=== PATIENT | female | born 2000 | race Caucasian/White ===

== ENCOUNTER 2020-10-03 07:37 | Day surgery (SDC) | payer OTHER ==
[2020-09-30 09:45] LABS: MICROSCOPIC NOT IND
[2020-09-30 09:46] LABS: BASOPHILS % (AUTO) 1 % (0-1); EOSINOPHILS % (AUTO) 1 % (1-7); LYMPHOCYTES % (AUTO) 34 % (22-44); MEAN CORPUSCULAR HEMOGLOBIN 27.3 pg (27.0-34.8); MEAN CORPUSCULAR HGB CONC 32.9 g/dL (32.4-35.8); MONOCYTES % (AUTO) 7 % (2-9); NEUTROPHILS % (AUTO) 57 % (42-75); PLATELET COUNT 207 x10^3/uL (130-400); RED BLOOD COUNT 4.83 x10^6/uL (3.82-5.3); RED CELL DISTRIBUTION WIDTH 14.2 % (9.6-15.2)
[2020-09-30 09:47] LABS: MD NO
[2020-09-30 09:56] LABS: ALANINE AMINOTRANSFERASE 20 U/L (12-78); ANION GAP 4 mmol/L (5-15); CALCIUM 8.6 mg/dL (8.5-10.1); CHLORIDE 112 mmol/L (98-107); CREATININE 0.73 mg/dL (0.55-1.02)
[2020-09-30 10:01] LABS: ALKALINE PHOSPHATASE 93 U/L (45-117); BILIRUBIN,TOTAL 0.4 mg/dL (0.2-1.0)
[~2020-10-03] VITALS: Ht 172.7 cm; Wt 76.1 kg
[~2020-10-03 07:37] MED LIST: ASCO500T59 PO; CA C1TAB39 PO; CHOL10003 PO; IBUP-1223 PO; MEDR150D3 INJ; MULT-658 PO
[2020-10-03] MEDS ORDERED: MIDAZOLAM 1 MG/ML, 2ML ONE (07:45)
[2020-10-03] MEDS ORDERED: FENTANYL PF 250 MCG/5ML ONE (07:46)
[2020-10-03] MEDS ORDERED: PROPOFOL 10 MG/ML, 20ML ONE (07:47)
[2020-10-03] MEDS ORDERED: LIDOCAINE-MPF 2% ,5ML ONE (07:49)
[2020-10-03] MEDS ORDERED: ROCURONIUM 10MG/ML,5ML ONE (07:49)
[2020-10-03] MEDS ORDERED: CHLORHEXIDINE 15 ML UDC ONE (07:50)
[2020-10-03] MEDS ORDERED: LACTATED RINGERS 1,000 ML IV SCH (08:00)
[2020-10-03] MEDS ORDERED: CHLORHEXIDINE 15 ML UDC PO ONE (08:00)
[2020-10-03 08:03] VITALS: BP 138/87
[2020-10-03] MEDS ORDERED: MEPERIDINE/PF 25MG/0.5ML IVPush PRN (09:00)
[2020-10-03] MEDS ORDERED: hydrALAzine 20 MG/ML, 1ML IV PRN (09:00)
[2020-10-03] MEDS ORDERED: OXYcodone 5 MG/5 ML ORAL.SOL UDC PO PRN (09:00)
[2020-10-03] MEDS ORDERED: PROMETHAZINE 25 MG/ML, 1ML IVPush PRN (09:00)
[2020-10-03] MEDS ORDERED: DIPHENHYDRAMINE 50 MG/ML, 1ML IVPush PRN (09:00)
[2020-10-03] MEDS ORDERED: DIAZEPAM 5 MG/ML, 2ML IVPush PRN (09:00)
[2020-10-03] MEDS ORDERED: ONDANSETRON 2MG/ML, 2ML IVPush PRN (09:00)
[2020-10-03] MEDS ORDERED: LABETALOL 5MG/ML, 20ML IV PRN (09:00)
[2020-10-03] MEDS ORDERED: ACETAMINOPHEN 325 MG TABLET PO PRN (09:00)
[2020-10-03] MEDS ORDERED: HYDROmorphone 1 MG/ML, 1ML INJ IVPush PRN (09:00)
[2020-10-03] MEDS ORDERED: LIDOCAINE/MPF 2%-EPI 1:200K, 20 ML ONE (09:07)
[2020-10-03] MEDS ORDERED: ONDANSETRON 2MG/ML, 2ML ONE (09:11)
[2020-10-03] MEDS ORDERED: KETOROLAC 30 MG/1 ML ONE (09:11)
[2020-10-03] MEDS ORDERED: DEXAMETHASONE 4 MG/ML, 1ML ONE (09:14)
[2020-10-03] MEDS ORDERED: SUGAMMADEX 200 MG/2 ML IVPush ONE (09:14)
[2020-10-03] MEDS ORDERED: FENTANYL PF 100 MCG/2ML ONE (10:13)
[2020-10-03] MEDS ORDERED: ACETAMINOPHEN 650 MG/20.3 ML UDC ONE (10:13)
[2020-10-03] MEDS ORDERED: OXYcodone 5 MG/5 ML ORAL.SOL UDC ONE (10:13)
[2020-10-03] MEDS: FENTANYL PF 100 MCG/2ML IV PRN ×2 (10:15→10:25)
[2020-10-03] MEDS ORDERED: MEPERIDINE/PF 25MG/ML,1ML ONE (10:17)
== END 2020-10-03 12:20 | disposition home or self-care (01) ==
LOC: OUT 07:37
PROVIDERS: ATTEND Obstetrics & Gynecology Gynecology
DX: N80.3 Endometriosis of pelvic peritoneum (principal); N73.6 Female pelvic peritoneal adhesions (postinfective); N94.6 Dysmenorrhea, unspecified; N94.12 Deep dyspareunia; Z20.822 Contact with and (suspected) exposure to COVID-19; Z79.899 Other long term (current) drug therapy
CPT/HCPCS: 36415; 58662; 80053; 81003; 84703; 85025; 88305; J1100; J1885; J2175; J2250; J2405; J2704; J3010; J7120; U0003; U0005

== ENCOUNTER 2021-01-14 17:26 | Emergency (ER) | payer OTHER ==
[~2021-01-14] VITALS: Ht 175.3 cm; Wt 77.1 kg
[2021-01-14 17:43] VITALS: BP 113/71
--- NOTE | 2021-01-14 18:31 | NUR ---
log roller: Pt ambulatory to room from lobby at this time.
--- NOTE | 2021-01-14 19:01 | NUR ---
REPORT GIVEN TO MARY KATE URIBE
[2021-01-14] MEDS ORDERED: HYDROcodone/APAP 5/325 TABLET ONE (19:19)
[2021-01-14] MEDS ORDERED: ONDANSETRON ODT 8 MG ONE (19:19)
[2021-01-14] MEDS ORDERED: HYDROcodone/APAP 5/325 TABLET PO ONE (19:30)
[2021-01-14] MEDS ORDERED: ONDANSETRON ODT 8 MG PO ONE (19:30)
--- NOTE | 2021-01-14 19:48 | NUR ---
Patient/Caregiver given discharge instructions and they have confirmed that they understand the instructions. Patient ambulatory with steady gait. NAD, all questions answered appropriately, denies additional needs at this time. No personal belongings left in room after discharge.
== END 2021-01-14 19:59 | disposition home or self-care (01) ==
LOC: ED 17:56
DX: R10.2 Pelvic and perineal pain (principal); R10.30 Lower abdominal pain, unspecified; R11.0 Nausea
CPT/HCPCS: 76830; 99284; Q0162